=== PATIENT | female | born 1990 | race Caucasian/White ===

== ENCOUNTER 2019-04-03 16:48 | Observation (INO) | payer OTHER ==
[~2019-04-03] VITALS: Ht 157.5 cm; Wt 81.6 kg
[2019-04-03 17:31] VITALS: BP 117/86
[2019-04-03] MEDS ORDERED: FERR-252 PO (17:38)
[2019-04-03] MEDS ORDERED: PREN-380 PO (17:38)
== END 2019-04-03 19:30 | disposition home or self-care (01) ==
LOC: MLD 16:48
PROVIDERS: ADMIT Obstetrics & Gynecology; ATTEND Obstetrics & Gynecology
DX: O36.8130 Decreased fetal movements, third trimester, not applicable or unspecified (principal); Z3A.35 35 weeks gestation of pregnancy
CPT/HCPCS: 59025; 76819; G0378; Q0092

== ENCOUNTER 2019-04-27 07:24 | Inpatient (IN) | payer OTHER ==
[~2019-04-27] VITALS: Ht 157.5 cm; Wt 83.9 kg
[~2019-04-27 07:24] MED LIST: FERR-252 PO; PREN-380 PO
[2019-04-27 09:36] LABS: BASOPHILS % (AUTO) 0.2 % (0.0-2.0); EOSINOPHILS # (AUTO) 0.2 K/uL (0-0.4); EOSINOPHILS % (AUTO) 1.6 % (0.0-4.0); HEMATOCRIT 35.9 % (36-48); HEMOGLOBIN 11.6 g/dL (12.0-16.0); LYMPHOCYTES # (AUTO) 1.7 K/uL (2.5-16.5); LYMPHOCYTES % (AUTO) 18.3 % (20.5-51.1); MEAN CORPUSCULAR HEMOGLOBIN 27 pg (27-31); MEAN CORPUSCULAR HGB CONC 32 g/dL (33-37); MEAN CORPUSCULAR VOLUME 82.1 fL (80-94); MONOCYTES % (AUTO) 10.3 % (1.7-9.3); NEUTROPHILS # (AUTO) 6.5 K/uL (1.8-7.7); NEUTROPHILS % (AUTO) 69.6 % (42.2-75.2); PLATELET COUNT (AUTO) 178 K/uL (140-450); RED BLOOD CELL COUNT(AUTO) 4.37 MIL/uL (4.20-5.40); WHITE BLOOD COUNT (AUTO) 9.4 K/uL (4.8-10.8)
[2019-04-27 09:50] LABS: APPEARANCE,URINE HAZY (CLEAR); BILIRUBIN,URINE NEGATIVE (NEGATIVE); BLOOD, URINE NEGATIVE (NEGATIVE); COLOR,URINE YELLOW (YELLOW); LEUKOCYTE ESTERASE ,URINE 1+ (NEGATIVE); NITRITE, URINE NEGATIVE (NEGATIVE); UGLUCOSE NEGATIVE (NEGATIVE)
[2019-04-27 09:59] LABS: RBC,URINE 0-5 /HPF (0-5)
[2019-04-27] MEDS ORDERED: CARBOPROST 250 MCG/ML AMP IM PRN (10:20)
[2019-04-27] MEDS ORDERED: PROMETHAZINE 25 MG/ML VIAL IVP PRN (10:20)
[2019-04-27] MEDS ORDERED: OXYTOCIN 10 UNITS/ML VIAL IM SCH (10:20)
[2019-04-27] MEDS ORDERED: METHYLERGONOVINE 0.2 MG/ML AMP IM PRN (10:20)
[2019-04-27] MEDS ORDERED: NALBUPHINE 10 MG/ML AMP IVP PRN (10:20)
[2019-04-27] MEDS: LACTATED RINGERS 1,000 ML IV SCH ×2 (12:10→19:50)
[2019-04-27] MEDS ORDERED: OXYTOCIN 20 UNITS in LACTATED RINGERS 1,000 ML IV SCH (13:50)
[2019-04-27] MEDS ORDERED: OXYTOCIN 20 UNITS/LR PREMIX 1,000 ML IV ONE (13:51)
[2019-04-27] MEDS ORDERED: AMPICILLIN 2,000 MG VIAL ONE (17:44)
[2019-04-28] MEDS: LACTATED RINGERS 1,000 ML IV SCH (03:30)
== END 2019-04-28 16:10 | disposition home or self-care (01) | DRG 566 ==
LOC: MLD 07:24 → OBSVTOIN 10:42 → MFCC 12:21
PROVIDERS: ADMIT Obstetrics & Gynecology; ATTEND Obstetrics & Gynecology
DX: O40.3XX0 Polyhydramnios, third trimester, not applicable or unspecified (principal); Z3A.39 39 weeks gestation of pregnancy
CPT/HCPCS: G0378 ×3; 36415; 76805; 81001; 85025; 86592; 86886; 86900; 86901; 87086; J0290; J2590; J7120; Q0092

== ENCOUNTER 2019-05-03 16:24 | Inpatient (IN) | payer OTHER ==
[~2019-05-03] VITALS: Ht 157.5 cm; Wt 83.9 kg
[2019-05-03] MEDS ORDERED: MISOPROSTOL 25 MCG TAB ONE (19:38)
[2019-05-03] MEDS ORDERED: PROMETHAZINE 25 MG/ML VIAL IVP PRN (22:00)
[2019-05-03] MEDS ORDERED: METHYLERGONOVINE 0.2 MG/ML AMP IM PRN (22:00)
[2019-05-03] MEDS ORDERED: CARBOPROST 250 MCG/ML AMP IM PRN (22:00)
[2019-05-03] MEDS ORDERED: OXYTOCIN 10 UNITS/ML VIAL IM SCH (22:00)
[2019-05-03] MEDS ORDERED: MORPHINE SULFATE 5 MG/ML VIAL IVP PRN (22:05)
[2019-05-03] MEDS ORDERED: ONDANSETRON 4 MG/2 ML VIAL IVP PRN (22:05)
[2019-05-03] MEDS ORDERED: OXYTOCIN 20 UNITS in LACTATED RINGERS 1,000 ML IV SCH (22:10)
[2019-05-03] MEDS ORDERED: MISOPROSTOL 25 MCG TAB VG ONE (22:10)
[2019-05-03] MEDS ORDERED: LIDOCAINE MPF 1% 10 MG/ML VIAL INJ SCH (22:15)
[2019-05-03 22:21] VITALS: BP 119/82
[2019-05-04] MEDS: LACTATED RINGERS 1,000 ML IV SCH ×3 (03:36→18:22)
[2019-05-04] MEDS ORDERED: ONDANSETRON 4 MG/2 ML VIAL IVP PRN (08:08)
[2019-05-04] MEDS ORDERED: OXYTOCIN 20 UNITS/LR PREMIX 1,000 ML IV ONE (08:17)
[2019-05-04] MEDS ORDERED: OXYTOCIN 10 UNITS/ML VIAL ONE (12:45)
[2019-05-04] MEDS ORDERED: LIDOCAINE 1% 500 MG/50 ML VIAL ONE (12:45)
[2019-05-04] MEDS ORDERED: MORPHINE SULFATE 10 MG/ML VIAL ONE (15:27)
[2019-05-04] MEDS ORDERED: PROMETHAZINE 25 MG/ML VIAL ONE (15:28)
[2019-05-04] MEDS ORDERED: BUPIVACAINE 0.125%/NS PREMIX 250 ML ONE (17:23)
[2019-05-04] MEDS ORDERED: BUPIVACAINE 0.125%/NS PREMIX 250 ML EPI SCH (17:45)
[2019-05-04] MEDS ORDERED: NALOXONE 0.4 MG/ML VIAL ONE (23:35)
[2019-05-04] MEDS ORDERED: OXYTOCIN 20 UNITS in LACTATED RINGERS 1,000 ML IV SCH (23:54)
[2019-05-04] MEDS ORDERED: DOCUSATE SODIUM 100 MG GELCAP PO PRN (23:55)
[2019-05-04] MEDS ORDERED: MEASLES, MUMPS, AND RUBELLA 1 VIAL SQVAC PRN (23:55)
[2019-05-04] MEDS ORDERED: IBUPROFEN 600 MG TAB PO PRN (23:55)
[2019-05-04] MEDS ORDERED: BISACODYL 5 MG TABEC PO PRN (23:55)
[2019-05-04] MEDS ORDERED: ACETAMINOPHEN 325 MG TAB PO PRN (23:55)
[2019-05-05 09:27] LABS: BASOPHILS % (AUTO) 0.2 % (0.0-2.0); EOSINOPHILS % (AUTO) 0.2 % (0.0-4.0); HEMATOCRIT 31.2 % (36-48); HEMOGLOBIN 10.1 g/dL (12.0-16.0); LYMPHOCYTES # (AUTO) 1.4 K/uL (2.5-16.5); LYMPHOCYTES % (AUTO) 6.4 % (20.5-51.1); MEAN CORPUSCULAR HEMOGLOBIN 26 pg (27-31); MEAN CORPUSCULAR HGB CONC 32 g/dL (33-37); MEAN CORPUSCULAR VOLUME 81.6 fL (80-94); MONOCYTES # (AUTO) 1.8 K/uL (0.8-1.0); MONOCYTES % (AUTO) 8.4 % (1.7-9.3); NEUTROPHILS # (AUTO) 18.3 K/uL (1.8-7.7); NEUTROPHILS % (AUTO) 84.8 % (42.2-75.2); PLATELET COUNT (AUTO) 163 K/uL (140-450); RED BLOOD CELL COUNT(AUTO) 3.82 MIL/uL (4.20-5.40); RED CELL DISTRIBUTION WIDTH 14.1 % (11.6-13.7); WHITE BLOOD COUNT (AUTO) 21.6 K/uL (4.8-10.8)
--- NOTE | 2019-05-05 14:45 | NUR ---
PATIENT HAS BEEN SCREENED AND CATEGORIZED LOW NUTRITION RISK. PATIENT WILL BE SEEN WITHIN 7 DAYS OF ADMISSION. 05/10/19 BURTON SHERMAN MBA,RD
[2019-05-05 20:38] LABS: APPEARANCE,URINE CLEAR (CLEAR); COLOR,URINE YELLOW (YELLOW); UGLUCOSE 2+ (NEGATIVE)
[2019-05-05 20:39] LABS: BILIRUBIN,URINE NEGATIVE (NEGATIVE); BLOOD, URINE NEGATIVE (NEGATIVE); LEUKOCYTE ESTERASE ,URINE NEGATIVE (NEGATIVE); NITRITE, URINE NEGATIVE (NEGATIVE)
[2019-05-05 20:40] LABS: RBC,URINE 0 /HPF (0-5); WBC,URINE 0-5 /HPF (0-5)
[2019-05-05 21:21] LABS: WHITE BLOOD COUNT (AUTO) 7.5 K/uL (4.8-10.8)
[2019-05-05 21:23] LABS: HEMATOCRIT 34.2 % (36-48); MEAN CORPUSCULAR HEMOGLOBIN 26 pg (27-31); MEAN CORPUSCULAR HGB CONC 32 g/dL (33-37); MEAN CORPUSCULAR VOLUME 81.4 fL (80-94); RED CELL DISTRIBUTION WIDTH 14.4 % (11.6-13.7)
[2019-05-05 21:24] LABS: BASOPHILS % (AUTO) 0.1 % (0.0-2.0); EOSINOPHILS % (AUTO) 1.2 % (0.0-4.0); LYMPHOCYTES # (AUTO) 1.1 K/uL (2.5-16.5); LYMPHOCYTES % (AUTO) 14.9 % (20.5-51.1); MONOCYTES % (AUTO) 10.8 % (1.7-9.3); NEUTROPHILS # (AUTO) 5.5 K/uL (1.8-7.7); PLATELET COUNT (AUTO) 180 K/uL (140-450)
[2019-05-05 21:26] LABS: EOSINOPHILS # (AUTO) 0.1 K/uL (0-0.4); MONOCYTES # (AUTO) 0.8 K/uL (0.8-1.0)
[2019-05-06] MEDS ORDERED: FERR325E14 PO (11:07)
[2019-05-06] MEDS ORDERED: ACET-9800 PO (11:09)
== END 2019-05-06 15:25 | disposition home or self-care (01) | DRG 560 ==
LOC: MLD 16:24 → MFCC 05-05 02:30
PROVIDERS: ADMIT Obstetrics & Gynecology; ATTEND Obstetrics & Gynecology
PROC: 10E0XZZ Delivery of Products of Conception, External Approach (ICD-10-PCS; principal; 2019-05-04)
PROC: 3E0R3BZ Introduction of Anesthetic Agent into Spinal Canal, Percutaneous Approach (ICD-10-PCS; 2019-05-04)
PROC: 00HU33Z Insertion of Infusion Device into Spinal Canal, Percutaneous Approach (ICD-10-PCS; 2019-05-04)
PROC: 3E033VJ Introduction of Other Hormone into Peripheral Vein, Percutaneous Approach (ICD-10-PCS; 2019-05-04)
DX: O40.3XX0 Polyhydramnios, third trimester, not applicable or unspecified (principal); Z37.0 Single live birth; Z3A.40 40 weeks gestation of pregnancy
CPT/HCPCS: 36415; 51702; 59200; 59409; 76815; 81001; 85025; 86592; 86886; 86900; 86901; J2001; J2270; J2310; J2550; J2590; J3490; J7120; Q0092

== ENCOUNTER 2021-01-24 12:20 | Observation (INO) | payer OTHER ==
[~2021-01-24 12:20] MED LIST changes: +ACET-9800 PO; -FERR-252 PO; +FERR325E14 PO
== END 2021-01-24 12:45 | disposition home or self-care (01) ==
LOC: MLD 12:20
PROVIDERS: ADMIT Obstetrics & Gynecology; ATTEND Obstetrics & Gynecology
DX: O26.893 Other specified pregnancy related conditions, third trimester (principal); R10.9 Unspecified abdominal pain; Z53.21 Procedure and treatment not carried out due to patient leaving prior to being seen by health care provider; Z3A.37 37 weeks gestation of pregnancy
CPT/HCPCS: 59025; G0378

== ENCOUNTER 2021-01-28 13:48 | Observation (INO) | payer OTHER, SELFPAY ==
[~2021-01-28] VITALS: Ht 157.5 cm; Wt 82.6 kg
[2021-01-28 16:04] VITALS: BP 111/68
== END 2021-01-28 19:58 | disposition home or self-care (01) ==
LOC: MLD 13:48
PROVIDERS: ADMIT Obstetrics & Gynecology; ATTEND Obstetrics & Gynecology
DX: O62.9 Abnormality of forces of labor, unspecified (principal); Z20.822 Contact with and (suspected) exposure to COVID-19; Z3A.38 38 weeks gestation of pregnancy
CPT/HCPCS: 59025; 76805; 87426; G0378; Q0092

== ENCOUNTER 2021-01-29 18:50 | Inpatient (IN) | payer OTHER, SELFPAY ==
[~2021-01-29] VITALS: Ht 157.5 cm; Wt 82.6 kg
[2021-01-29] MEDS ORDERED: METHYLERGONOVINE 0.2 MG/ML AMP IM PRN (19:45)
[2021-01-29] MEDS ORDERED: NALBUPHINE 10 MG/ML AMP IVP PRN (19:45)
[2021-01-29] MEDS ORDERED: OXYTOCIN 10 UNITS/ML VIAL IM SCH (19:45)
[2021-01-29] MEDS ORDERED: PROMETHAZINE 25 MG/ML VIAL IVP PRN (19:45)
[2021-01-29] MEDS ORDERED: CARBOPROST 250 MCG/ML AMP IM PRN (19:45)
[2021-01-29] MEDS ORDERED: LACTATED RINGERS 500 ML IV ONE (19:45)
[2021-01-29] MEDS ORDERED: OXYTOCIN 20 UNITS in LACTATED RINGERS 1,000 ML IV SCH (19:50)
[2021-01-29] MEDS ORDERED: MISOPROSTOL 25 MCG TAB VG ONE (20:00)
[2021-01-29] MEDS ORDERED: MISOPROSTOL 25 MCG TAB ONE (20:01)
[2021-01-29 20:29] LABS: BASOPHILS % (AUTO) 0.3 % (0.0-2.0); EOSINOPHILS # (AUTO) 0.1 K/uL (0-0.4); EOSINOPHILS % (AUTO) 1.2 % (0.0-4.0); HEMOGLOBIN 11.5 g/dL (12.0-16.0); LYMPHOCYTES # (AUTO) 1.5 K/uL (2.5-16.5); MEAN CORPUSCULAR HEMOGLOBIN 28 pg (27-31); MEAN CORPUSCULAR HGB CONC 33 g/dL (33-37); MEAN CORPUSCULAR VOLUME 84.1 fL (80-94); MONOCYTES # (AUTO) 1.4 K/uL (0.8-1.0); MONOCYTES % (AUTO) 13.1 % (1.7-9.3); NEUTROPHILS # (AUTO) 7.7 K/uL (1.8-7.7); NEUTROPHILS % (AUTO) 71.4 % (42.2-75.2); PLATELET COUNT (AUTO) 157 K/uL (140-450); RED BLOOD CELL COUNT(AUTO) 4.17 MIL/uL (4.20-5.40); RED CELL DISTRIBUTION WIDTH 14.6 % (11.6-13.7); WHITE BLOOD COUNT (AUTO) 10.7 K/uL (4.8-10.8)
[2021-01-29 20:31] LABS: APPEARANCE,URINE CLEAR (CLEAR); BILIRUBIN,URINE NEGATIVE (NEGATIVE); BLOOD, URINE NEGATIVE (NEGATIVE); COLOR,URINE YELLOW (YELLOW); LEUKOCYTE ESTERASE ,URINE TRACE (NEGATIVE); NITRITE, URINE NEGATIVE (NEGATIVE); UGLUCOSE 1+ (NEGATIVE)
[2021-01-29 20:48] LABS: ALBUMIN 2.3 g/dL (3.4-5.0); ANION GAP 11.1 (8-16); CARBON DIOXIDE 24.4 mmol/L (21-32); CREATININE 0.7 mg/dL (0.6-1.3); POTASSIUM 3.5 mmol/L (3.5-5.1); TOTAL BILIRUBIN 0.1 mg/dL (0.0-1.0)
[2021-01-29 20:56] LABS: RBC,URINE 0-5 /HPF (0-5)
[2021-01-29] MEDS: LACTATED RINGERS 1,000 ML IV SCH (21:52)
[2021-01-30] MEDS ORDERED: OXYTOCIN 20 UNITS/LR PREMIX 1,000 ML IV ONE (02:02)
[2021-01-30] MEDS ORDERED: ROPIVACAINE 0.2%/NS PREMIX 200 ML EPI ONE (08:39)
[2021-01-30] MEDS ORDERED: fentaNYL citrate 0.05 MG/ML VIAL ONE (08:39)
[2021-01-30] MEDS ORDERED: LIDOCAINE MPF 1% 10 MG/ML VIAL ONE (09:05)
[2021-01-30] MEDS ORDERED: [UNRECOGNIZED DRUG - OTHER] ONE (09:05)
[2021-01-30] MEDS: LACTATED RINGERS 1,000 ML IV SCH (09:39)
[2021-01-30] MEDS ORDERED: bisacodyL 5 MG TABEC PO PRN ×2 (16:50→17:15)
[2021-01-30] MEDS ORDERED: DOCUSATE SODIUM 100 MG GELCAP PO PRN ×2 (16:50→17:15)
[2021-01-30] MEDS ORDERED: ACETAMINOPHEN 325 MG TAB PO PRN ×2 (16:50→17:15)
[2021-01-30] MEDS ORDERED: OXYTOCIN 20 UNITS in LACTATED RINGERS 1,000 ML IV SCH ×2 (16:50→17:15)
[2021-01-30] MEDS ORDERED: MEASLES, MUMPS, AND RUBELLA 1 VIAL SQVAC ONE (16:50)
[2021-01-30] MEDS ORDERED: SODIUM PHOSPHATE 118 ML ENEM RC PRN (17:15)
[2021-01-30] MEDS ORDERED: IBUPROFEN 600 MG TAB PO PRN (17:15)
[2021-01-31 09:39] LABS: BASOPHILS % (AUTO) 0.1 % (0.0-2.0); EOSINOPHILS # (AUTO) 0.1 K/uL (0-0.4); HEMOGLOBIN 10.3 g/dL (12.0-16.0); LYMPHOCYTES # (AUTO) 1.6 K/uL (2.5-16.5); LYMPHOCYTES % (AUTO) 12.6 % (20.5-51.1); MEAN CORPUSCULAR HEMOGLOBIN 27 pg (27-31); MEAN CORPUSCULAR HGB CONC 32 g/dL (33-37); MEAN CORPUSCULAR VOLUME 84.5 fL (80-94); MONOCYTES # (AUTO) 1.3 K/uL (0.8-1.0); MONOCYTES % (AUTO) 10.1 % (1.7-9.3); NEUTROPHILS # (AUTO) 9.9 K/uL (1.8-7.7); NEUTROPHILS % (AUTO) 76.2 % (42.2-75.2); PLATELET COUNT (AUTO) 145 K/uL (140-450); RED BLOOD CELL COUNT(AUTO) 3.78 MIL/uL (4.20-5.40); RED CELL DISTRIBUTION WIDTH 14.6 % (11.6-13.7)
[2021-01-31 15:06] LABS: HEPATITIS B SURFACE ANTIGEN Negative (Negative)
== END 2021-02-01 15:45 | disposition home or self-care (01) | DRG 560 ==
LOC: MFCC 18:50
PROVIDERS: ADMIT Obstetrics & Gynecology; ATTEND Obstetrics & Gynecology
PROC: 10E0XZZ Delivery of Products of Conception, External Approach (ICD-10-PCS; principal; 2021-01-30)
PROC: 10907ZC Drainage of Amniotic Fluid, Therapeutic from Products of Conception, Via Natural or Artificial Opening (ICD-10-PCS; 2021-01-30)
PROC: 3E0R3BZ Introduction of Anesthetic Agent into Spinal Canal, Percutaneous Approach (ICD-10-PCS; 2021-01-30)
PROC: 00HU33Z Insertion of Infusion Device into Spinal Canal, Percutaneous Approach (ICD-10-PCS; 2021-01-30)
DX: O80 Encounter for full-term uncomplicated delivery (principal); Z37.0 Single live birth; Z3A.39 39 weeks gestation of pregnancy
CPT/HCPCS: 36415; 51702; 59409; 80053; 81001; 85025; 86592; 86762; 87086; 87340; J2001; J2590; J2795; J3010; J7120